=== PATIENT | female | born 1955 | race Caucasian/White ===

== ENCOUNTER 2016-06-21 00:02 | Emergency (ER) | payer BC ==
[2013-06-04 16:06] VITALS: BMI 25.8
[~2016-06-21 00:02] MED LIST: ALTACE5 MG PO; AMBIEN10 MG PO; KEPPRA XR750 MG PO; MEDROL DOSE PACK4 MG PO; NORCO 10/325 TA1 TA1 PO; SYNTHROID112 MCG PO; SYNTHROID50 MCG PO
[2016-06-21 01:27] LABS: BASOPHILS 0.5 % (0-2); EOSINOPHILS 0.4 % (0-7); HEMATOCRIT 40.8 % (36.0-48.0); HEMOGLOBIN 13.6 g/dL (12-16); IMMATURE GRANULOCYTES 0.2 % (0-5); LYMPHOCYTES 33.1 % (15-50); MCHC 33.3 g/dL (31.0-37.0); MEAN PLATELET VOLUME 10.2 fL (7.4-10.4); MONOCYTES 11.3 % (2-11); NEUTROPHILS 54.5 % (40-80); PLATELET COUNT 192 10x3/uL (130-400); RDW 14.5 % (11.5-14.5); WBC 5.5 10x3/uL (4.8-10.8)
[2016-06-21 01:41] LABS: ALBUMIN 3.2 g/dL (3.4-5.0); ALKALINE PHOSPHATASE 85 U/L (46-116); ALT (SGPT) 24 U/L (10-68); BILIRUBIN - TOTAL 0.74 mg/dL (0.2-1.3); CALC OSMOLALITY 284 mosm/kg (275-300); CALCIUM 8.4 mg/dL (8.5-10.1); CHLORIDE - SERUM 104 mmol/L (98-107); GLUCOSE 120 mg/dL (74-106); PROTEIN - SERUM 7.7 g/dL (6.4-8.2); SODIUM 143 mmol/L (136-145); UREA NITROGEN 9 mg/dL (7-18); eGFR NON AFRICAN AMERICAN 59 mL/min (90-120)
[2016-06-21 01:51] LABS: AMYLASE - SERUM 67 U/L (25-115); LIPASE 312 U/L (73-393); THYROID STIMULATING HORMONE 0.39 uIU/mL (0.36-3.74); TROPONIN-I < 0.017 ng/mL (0.000-0.060)
== END 2016-06-21 02:17 | disposition home or self-care (01) ==
LOC: D.ER 00:02
PROVIDERS: Family Medicine
DX: S00.83XA Contusion of other part of head, initial encounter (principal); W19.XXXA Unspecified fall, initial encounter; Y93.89 Activity, other specified; Y92.89 Other specified places as the place of occurrence of the external cause; F10.10 Alcohol abuse, uncomplicated

== ENCOUNTER → 2017-05-09 11:10 | Outpatient (CLI) | payer BC ==
[2013-06-04 16:06] VITALS: BMI 25.8
== END | disposition home or self-care (01) ==
LOC: D.MRI 11:10
DX: S32.000A Wedge compression fracture of unspecified lumbar vertebra, initial encounter for closed fracture (principal); X58.XXXA Exposure to other specified factors, initial encounter; Y93.89 Activity, other specified; Y92.89 Other specified places as the place of occurrence of the external cause

== ENCOUNTER → 2017-10-09 08:03 | Outpatient (CLI) | payer BC ==
[2013-06-04 16:06] VITALS: BMI 25.8
[~2017-10-09 08:03] MED LIST changes: +CHRONULAC30 ML PO; +SYNTHROID137 MCG PO
[2017-10-11 08:39] VITALS: BMI 26.7
== END | disposition home or self-care (01) ==
LOC: D.US 08:00
DX: R10.9 Unspecified abdominal pain (principal); R79.89 Other specified abnormal findings of blood chemistry

== ENCOUNTER 2017-10-10 16:05 | Inpatient (IN) | payer BC ==
[~2017-10-10] VITALS: Ht 167.6 cm; Wt 75.0 kg
[~2017-10-10 16:05] MED LIST changes: -CHRONULAC30 ML PO; -SYNTHROID137 MCG PO
[2017-10-10 17:36] LABS: BASOPHILS 0.6 % (0-2); EOSINOPHILS 0.4 % (0-7); HEMATOCRIT 32.2 % (36.0-48.0); HEMOGLOBIN 11.2 g/dL (12-16); IMMATURE GRANULOCYTES 0.3 % (0-5); LYMPHOCYTES 20.1 % (15-50); MCHC 34.8 g/dL (31.0-37.0); MONOCYTES 14.9 % (2-11); NEUTROPHILS 63.7 % (40-80); RDW 17.5 % (11.5-14.5)
[2017-10-10 17:42] LABS: PLATELET COUNT 132 10x3/uL (130-400)
[2017-10-10 17:50] LABS: ALBUMIN 1.5 g/dL (3.4-5.0); ANION GAP 9.3 mmol/L (8-16); BILIRUBIN - TOTAL 3.63 mg/dL (0.2-1.3); CALCIUM 7.6 mg/dL (8.5-10.1); CARBON DIOXIDE 27.1 mmol/L (21.0-32.0); CREATININE - SERUM 0.9 mg/dL (0.6-1.3); POTASSIUM - SERUM 3.4 mmol/L (3.5-5.1); PROTEIN - SERUM 7.3 g/dL (6.4-8.2)
[2017-10-10 18:11] VITALS: BP 96/52; BMI 26.7
[2017-10-10 18:51] LABS: BILIRUBIN - DIRECT 2.47 mg/dL (0.00-0.30)
[2017-10-10 20:00] VITALS: BP 84/63
[2017-10-10 20:29] LABS: BILIRUBIN - INDIRECT 1.16 mg/dL (0.00-1.00); BILIRUBIN - TOTAL 3.63 mg/dL (0.2-1.3)
[2017-10-11] VITALS: BP 80/43
[2017-10-11 04:00] VITALS: BP 86/45
[2017-10-11 06:27] LABS: ALBUMIN 1.3 g/dL (3.4-5.0); ALKALINE PHOSPHATASE 108 U/L (46-116); ALT (SGPT) 29 U/L (10-68); BILIRUBIN - TOTAL 3.75 mg/dL (0.2-1.3); CALC OSMOLALITY 273 mosm/kg (275-300); CALCIUM 7.1 mg/dL (8.5-10.1); CHLORIDE - SERUM 105 mmol/L (98-107); CREATININE - SERUM 0.8 mg/dL (0.6-1.3); GLUCOSE 72 mg/dL (74-106); PROTEIN - SERUM 6.4 g/dL (6.4-8.2); SODIUM 139 mmol/L (136-145); eGFR NON AFRICAN AMERICAN 77 mL/min (90-120)
[2017-10-11 06:28] LABS: UREA NITROGEN 4 mg/dL (7-18)
[2017-10-11 06:46] LABS: BASOPHILS 0.4 % (0-2); EOSINOPHILS 0.8 % (0-7); HEMATOCRIT 30.3 % (36.0-48.0); HEMOGLOBIN 10.4 g/dL (12-16); IMMATURE GRANULOCYTES 0.4 % (0-5); LYMPHOCYTES 29.6 % (15-50); MCH 39.4 pg (26.0-34.0); MCHC 34.3 g/dL (31.0-37.0); MCV 114.8 fL (80.0-100.0); MEAN PLATELET VOLUME 10.6 fL (7.4-10.4); MONOCYTES 14.7 % (2-11); NEUTROPHILS 54.1 % (40-80); PLATELET COUNT 131 10x3/uL (130-400); RBC 2.64 10x6/uL (4.00-5.40); RDW 17.5 % (11.5-14.5)
[2017-10-11 08:03] VITALS: BP 101/68
[2017-10-11 08:39] VITALS: Ht 167.6 cm; Wt 75.0 kg
[2017-10-11] MEDS ORDERED: SYNTHROID137 MCG PO (10:59)
[2017-10-11 16:15] VITALS: BP 103/72
[2017-10-11 21:10] VITALS: BP 100/69
[2017-10-12 05:07] VITALS: BP 124/74
[2017-10-12 05:22] LABS: BASOPHILS 0.3 % (0-2); EOSINOPHILS 0.8 % (0-7); HEMATOCRIT 31.4 % (36.0-48.0); HEMOGLOBIN 10.8 g/dL (12-16); IMMATURE GRANULOCYTES 0.2 % (0-5); LYMPHOCYTES 27.6 % (15-50); MCH 39.6 pg (26.0-34.0); MCHC 34.4 g/dL (31.0-37.0); MEAN PLATELET VOLUME 10.3 fL (7.4-10.4); MONOCYTES 12.2 % (2-11); NEUTROPHILS 58.9 % (40-80); PLATELET COUNT 119 10x3/uL (130-400); RBC 2.73 10x6/uL (4.00-5.40); RDW 17.1 % (11.5-14.5); WBC 6.1 10x3/uL (4.8-10.8)
[2017-10-12 05:43] LABS: ALBUMIN 1.2 g/dL (3.4-5.0); ANION GAP 8.8 mmol/L (8-16); BILIRUBIN - TOTAL 3.25 mg/dL (0.2-1.3); CALCIUM 7.3 mg/dL (8.5-10.1); CARBON DIOXIDE 24.8 mmol/L (21.0-32.0); CREATININE - SERUM 0.9 mg/dL (0.6-1.3); PROTEIN - SERUM 6.6 g/dL (6.4-8.2)
[2017-10-12 05:44] LABS: POTASSIUM - SERUM 3.6 mmol/L (3.5-5.1)
[2017-10-12 07:57] VITALS: BP 94/72
[2017-10-12 22:12] VITALS: BP 94/62
[2017-10-13 04:27] VITALS: BP 99/68
[2017-10-13 05:02] LABS: BASOPHILS 0.5 % (0-2); EOSINOPHILS 1.4 % (0-7); HEMOGLOBIN 11.1 g/dL (12-16); IMMATURE GRANULOCYTES 0.3 % (0-5); LYMPHOCYTES 28.4 % (15-50); MCH 39.5 pg (26.0-34.0); MCHC 34.7 g/dL (31.0-37.0); MCV 113.9 fL (80.0-100.0); MEAN PLATELET VOLUME 10.2 fL (7.4-10.4); NEUTROPHILS 58.4 % (40-80); PLATELET COUNT 123 10x3/uL (130-400); RBC 2.81 10x6/uL (4.00-5.40); RDW 16.6 % (11.5-14.5); WBC 5.9 10x3/uL (4.8-10.8)
[2017-10-13 05:18] LABS: ALBUMIN 1.3 g/dL (3.4-5.0); ALKALINE PHOSPHATASE 128 U/L (46-116); ALT (SGPT) 31 U/L (10-68); BILIRUBIN - TOTAL 3.08 mg/dL (0.2-1.3); CALC OSMOLALITY 271 mosm/kg (275-300); CALCIUM 7.3 mg/dL (8.5-10.1); CARBON DIOXIDE 25.8 mmol/L (21.0-32.0); CHLORIDE - SERUM 107 mmol/L (98-107); CREATININE - SERUM 0.8 mg/dL (0.6-1.3); GLUCOSE 77 mg/dL (74-106); POTASSIUM - SERUM 3.2 mmol/L (3.5-5.1); PROTEIN - SERUM 6.8 g/dL (6.4-8.2); SODIUM 138 mmol/L (136-145); UREA NITROGEN 3 mg/dL (7-18); eGFR NON AFRICAN AMERICAN 77 mL/min (90-120)
[2017-10-13 09:19] VITALS: BP 97/69
[2017-10-13 16:31] VITALS: BP 90/66
[2017-10-13 21:44] VITALS: BP 90/62
[2017-10-14 04:31] VITALS: BP 102/73
[2017-10-14 05:38] LABS: BASOPHILS 0.5 % (0-2); EOSINOPHILS 1.2 % (0-7); HEMATOCRIT 32.6 % (36.0-48.0); HEMOGLOBIN 11.1 g/dL (12-16); IMMATURE GRANULOCYTES 0.5 % (0-5); LYMPHOCYTES 24.4 % (15-50); MCH 38.8 pg (26.0-34.0); MEAN PLATELET VOLUME 9.9 fL (7.4-10.4); MONOCYTES 12.3 % (2-11); NEUTROPHILS 61.1 % (40-80); PLATELET COUNT 130 10x3/uL (130-400); RBC 2.86 10x6/uL (4.00-5.40); RDW 16.7 % (11.5-14.5); WBC 6.5 10x3/uL (4.8-10.8)
[2017-10-14 05:51] LABS: ALBUMIN 1.3 g/dL (3.4-5.0); ALKALINE PHOSPHATASE 124 U/L (46-116); ALT (SGPT) 29 U/L (10-68); CALC OSMOLALITY 269 mosm/kg (275-300); CALCIUM 7.3 mg/dL (8.5-10.1); CHLORIDE - SERUM 105 mmol/L (98-107); CREATININE - SERUM 0.8 mg/dL (0.6-1.3); GLUCOSE 77 mg/dL (74-106); PROTEIN - SERUM 6.5 g/dL (6.4-8.2); SODIUM 137 mmol/L (136-145); UREA NITROGEN 3 mg/dL (7-18); eGFR NON AFRICAN AMERICAN 77 mL/min (90-120)
[2017-10-14 05:53] LABS: POTASSIUM - SERUM 3.7 mmol/L (3.5-5.1)
[2017-10-14 08:14] VITALS: BP 104/77
[2017-10-14 12:02] VITALS: BP 104/73
[2017-10-14 17:01] VITALS: BP 92/72
[2017-10-14 22:14] VITALS: BP 94/68
[2017-10-15 05:40] VITALS: BP 112/68
[2017-10-15 06:01] LABS: BASOPHILS 0.5 % (0-2); EOSINOPHILS 1.7 % (0-7); HEMATOCRIT 31.9 % (36.0-48.0); IMMATURE GRANULOCYTES 0.3 % (0-5); LYMPHOCYTES 25.8 % (15-50); MCH 39.1 pg (26.0-34.0); MCHC 34.5 g/dL (31.0-37.0); MCV 113.5 fL (80.0-100.0); MEAN PLATELET VOLUME 10.2 fL (7.4-10.4); MONOCYTES 14.6 % (2-11); NEUTROPHILS 57.1 % (40-80); PLATELET COUNT 140 10x3/uL (130-400); RBC 2.81 10x6/uL (4.00-5.40); RDW 16.6 % (11.5-14.5); WBC 6.6 10x3/uL (4.8-10.8)
[2017-10-15 06:31] LABS: ALBUMIN 1.2 g/dL (3.4-5.0); ALKALINE PHOSPHATASE 130 U/L (46-116); ALT (SGPT) 29 U/L (10-68); BILIRUBIN - TOTAL 2.86 mg/dL (0.2-1.3); CALC OSMOLALITY 271 mosm/kg (275-300); CALCIUM 7.1 mg/dL (8.5-10.1); CARBON DIOXIDE 25.4 mmol/L (21.0-32.0); CHLORIDE - SERUM 106 mmol/L (98-107); CREATININE - SERUM 0.8 mg/dL (0.6-1.3); GLUCOSE 91 mg/dL (74-106); POTASSIUM - SERUM 3.8 mmol/L (3.5-5.1); PROTEIN - SERUM 6.4 g/dL (6.4-8.2); SODIUM 138 mmol/L (136-145); eGFR NON AFRICAN AMERICAN 77 mL/min (90-120)
[2017-10-15 06:32] LABS: UREA NITROGEN 2 mg/dL (7-18)
[2017-10-15 08:24] VITALS: BP 83/59
[2017-10-15 12:42] VITALS: BP 101/67
[2017-10-15] MEDS ORDERED: CHRONULAC30 ML PO (13:28)
[2017-10-16 09:17] LABS: ANA REFLEX - DIRECT Negative (Negative)
[2017-10-16 13:16] LABS: HEPATITIS C ANTIBODY 0.1 (0.0-0.9)
== END 2017-10-15 15:42 | disposition home or self-care (01) | DRG 433 ==
LOC: D.SDCHOLD 16:05 → D.MS 16:05
PROVIDERS: Family Medicine; Surgery
DX: K70.40 Alcoholic hepatic failure without coma (principal); K80.21 Calculus of gallbladder without cholecystitis with obstruction; K76.6 Portal hypertension; K70.30 Alcoholic cirrhosis of liver without ascites; M32.9 Systemic lupus erythematosus, unspecified; E03.9 Hypothyroidism, unspecified; Z87.891 Personal history of nicotine dependence

== ENCOUNTER 2017-12-09 16:10 | Inpatient (IN) | payer BC ==
[~2017-12-09] VITALS: Ht 167.6 cm; Wt 79.5 kg
--- NOTE | ~2017-12-09 | MORECARE ---
CASE MANAGEMENT DISCHARGE SUMMARY PATIENT: LILLY ABRAHAM UNIT: [id number] ADM DATE: 12/09/17 AGE: 62 : 53 SEX: F ROOM/BED: D.2238 AUTHOR: LORNA,DOC PHYSICIAN: REFERRING PHYSICIAN: MAYE RIZZO MD DATE OF SERVICE: 12/13/17 Discharge Plan Patient Name: LILLY ABRAHAM Facility: [facility]:[place] : 1955 Planned Disposition: Home with Home Health Anticipated Discharge Date: Discharge Date: 12/12/2017 Expected LOS: 0 Initial Reviewer: [email or web address] Initial Review Date: 12/10/2017 Generated: 12/13/17 6:08 pm Comments DCP- Discharge Planning Updated by [email or web address]: Dania Bedoya on 12/12/17 12:[address] is here in room getting patient dressed for discharge. Discharging home today with [facility]. I spoke with Josee and faxed DC summary and meds. denies further needs at this time. CM will continue to follow and assist with discharge planning/needs. DCP- Discharge Planning Updated by [email or web address]: Dania Bedoya on 12/10/17 9:[address] Patient Name: LILLY ABRAHAM Admission Status: Elective Accout number: [id number] Admission Date: 12-09-2017 : 1955 Admission Diagnosis: Attending: MAYE RIZZO Current LOS: 1 Anticipated DC Date: Planned Disposition: Home with Home Health Primary Insurance: [employer] [facility] EXCHANGE Discharge Planning Comments: CM met with patient, she is alone in the room. She answers some questions appropriately. States she would like me to speak with her . Patient's is in the hospital and has asked to speak to me. I spoke with patient's , Enrique. Discussed availability of SNF, rehab, home health and hospice. He states she lives with him and his 82 year old Aunt also lives in the house. He states he does not want her to go to a facility or inpatient rehab at this time and would prefer home health or personal care. BEATRICE for [employer] [facility] signed. I spoke with Josee and clinical sent. I provided him with personal care list, number for [facility]. CM will continue to follow and assist with discharge planning/needs. Enrique gonzalez - [phone] Engineering Team Supervisor: Dania Bedoya DCPIA - Discharge Planning Initial Assessment Updated by [email or web address]: Dania Bedoya on 12/10/17 10:32 am * Is the patient Alert and Oriented? No * How many steps to enter\exit or inside your home? 0/0 * PCP Dr. Rizzo * Pharmacy [facility] * Preadmission Environment Home with Family * ADLs Partial Dependent * Partial ADLs (Assistance needed) Ambulation Bathing Dressing Medication Management * Equipment Cane Crutch Walker Wheelchair * Other Equipment Fay Lift has been ordered * List name and contact numbers for known caregivers / representatives who currently or will assist patient after discharge: Enrique gonzalez - [phone] * Verbal permission to speak to the caregivers and representatives has been obtained from the patient. Yes * Community resources currently utilized None * Additional services required to return to the preadmission environment? Yes * Can the patient safely return to the preadmission environment? Yes * Has this patient been hospitalized within the prior 30 days at any hospital? No Last DP export: 12/12/17 12:40 p Patient Name: LILLY ABRAHAM Page [id number] at 1708 All edits/amendments must be made on the electronic document DICTATION DATE: 12/13/171706 PARTS COORDINATOR: ADDIE 12/13/171706 RPT#: [id number] DC DATE:12/12/17 STATUS: DIS IN [facility] [address] [place] [address] END OF REPORT
--- NOTE | ~2017-12-09 | MORECARE ---
CASE MANAGEMENT DISCHARGE SUMMARY PATIENT: LILLY ABRAHAM UNIT: [id number] ADM DATE: 12/09/17 AGE: 62 : 53 SEX: F ROOM/BED: D.2238 AUTHOR: LORNA,DOC PHYSICIAN: REFERRING PHYSICIAN: MAYE RIZZO MD DATE OF SERVICE: 12/10/17 Discharge Plan Patient Name: LILLY ABRAHAM Facility: [facility]:[place] : 1955 Planned Disposition: Home with Home Health Anticipated Discharge Date: Discharge Date: Expected LOS: Initial Reviewer: [email or web address] Initial Review Date: 12/10/2017 Generated: 12/10/17 11:43 am Comments DCP- Discharge Planning Updated by [email or web address]: Dania Bedoya on 12/10/17 9:[address] Patient Name: LILLY ABRAHAM Admission Status: Elective Accout number: [id number] Admission Date: 12-09-2017 : 1955 Admission Diagnosis: Attending: MAYE RIZZO Current LOS: 1 Anticipated DC Date: Planned Disposition: Home with Home Health Primary Insurance: [employer] EXCHANGE Discharge Planning Comments: CM met with patient, she is alone in the room. She answers some questions appropriately. States she would like me to speak with her . Patient's is in the hospital and has asked to speak to me. I spoke with patient's , Enrique. Discussed availability of SNF, rehab, home health and hospice. He states she lives with him and his 82 year old Aunt also lives in the house. He states he does not want her to go to a facility or inpatient rehab at this time and would prefer home health or personal care. BEATRICE for [employer] signed. I spoke with Josee and carlita stoddard. I provided him with personal care list, number for [facility]. CM will continue to follow and assist with discharge planning/needs. Enrique - - [phone] Drill Operator Automatic: Dania Bedoya DCPIA - Discharge Planning Initial Assessment Updated by [email or web address]: Dania Bedoya on 12/10/17 10:32 am * Is the patient Alert and Oriented? No * How many steps to enter\exit or inside your home? 0/0 * PCP Dr. Rizzo * Pharmacy [facility] * Preadmission Environment Home with Family * ADLs Partial Dependent * Partial ADLs (Assistance needed) Ambulation Bathing Dressing Medication Management * Equipment Cane Crutch Walker Wheelchair * Other Equipment Fay Lift has been ordered * List name and contact numbers for known caregivers / representatives who currently or will assist patient after discharge: Enrique gonzalez - [phone] * Verbal permission to speak to the caregivers and representatives has been obtained from the patient. Yes * Community resources currently utilized None * Additional services required to return to the preadmission environment? Yes * Can the patient safely return to the preadmission environment? Yes * Has this patient been hospitalized within the prior 30 days at any hospital? No Last DP export: 12/10/17 9:36 Patient Name: LILLY ABRAHAM Page 03242 at 1043 All edits/amendments must be made on the electronic document DICTATION DATE: 12/10/17 104 RESEARCH SCIENTIST: ADDIE 12/10/17 1042 RPT#: [id number] DC DATE: STATUS: ADM IN [facility] [address] [place] [address] END OF REPORT
--- NOTE | ~2017-12-09 | MORECARE ---
CASE MANAGEMENT DISCHARGE SUMMARY PATIENT: LILLY ABRAHAM UNIT: [id number] ADM DATE: 12/09/17 AGE: 62 : 53 SEX: F ROOM/BED: D.2238 AUTHOR: LUIS ALBERTO ROTHMAN PHYSICIAN: REFERRING PHYSICIAN: MAYE RIZZO MD DATE OF SERVICE: 12/10/17 Discharge Plan Patient Name: LILLY ABRAHAM Facility: [facility]:[place] : 1955 Planned Disposition: Home with Home Health Anticipated Discharge Date: Discharge Date: Expected LOS: Initial Reviewer: [email or web address] Initial Review Date: 12/10/2017 Generated: 12/10/17 11:36 am DCPIA - Discharge Planning Initial Assessment Updated by [email or web address]: Dania Bedoya on 12/10/17 10:32 am * Is the patient Alert and Oriented? No * How many steps to enter\exit or inside your home? 0/0 * PCP Dr. Rizzo * Pharmacy [facility] * Preadmission Environment Home with Family * ADLs Partial Dependent * Partial ADLs (Assistance needed) Ambulation Bathing Dressing Medication Management * Equipment Cane Crutch Walker Wheelchair * Other Equipment Fay Lift has been ordered * List name and contact numbers for known caregivers / representatives who currently or will assist patient after discharge: Enrique gonzalez - [phone] * Verbal permission to speak to the caregivers and representatives has been obtained from the patient. Yes * Community resources currently utilized None * Additional services required to return to the preadmission environment? Yes * Can the patient safely return to the preadmission environment? Yes * Has this patient been hospitalized within the prior 30 days at any hospital? No Patient Name: LILLY ABRAHAM Page 62711 at 1036 All edits/amendments must be made on the electronic document DICTATION DATE: 12/10/17 1035 MANAGER LAND: ADDIE 12/10/17 1035 RPT#: [id number] DC DATE: STATUS: ADM IN [facility] [address] [place] [address] END OF REPORT
--- NOTE | ~2017-12-09 | MORECARE ---
CASE MANAGEMENT DISCHARGE SUMMARY PATIENT: LILLY ABRAHAM UNIT: [id number] ADM DATE: 12/09/17 AGE: 62 : 53 SEX: F ROOM/BED: D.2238 AUTHOR: LORNA,DOC PHYSICIAN: REFERRING PHYSICIAN: MAYE RIZZO MD DATE OF SERVICE: 12/10/17 Discharge Plan Patient Name: LILLY ABRAHAM Facility: [facility]:[place] : 1955 Planned Disposition: Home with Home Health Anticipated Discharge Date: Discharge Date: Expected LOS: Initial Reviewer: [email or web address] Initial Review Date: 12/10/2017 Generated: 12/10/17 11:59 am Comments DCP- Discharge Planning Updated by [email or web address]: Dania Bedoya on 12/10/17 9:[address] Patient Name: LILLY ABRAHAM Admission Status: Elective Accout number: [id number] Admission Date: 12-09-2017 : 1955 Admission Diagnosis: Attending: MAYE RIZZO Current LOS: 1 Anticipated DC Date: Planned Disposition: Home with Home Health Primary Insurance: [employer] EXCHANGE Discharge Planning Comments: CM met with patient, she is alone in the room. She answers some questions appropriately. States she would like me to speak with her . Patient's is in the hospital and has asked to speak to me. I spoke with patient's , Enrique. Discussed availability of SNF, rehab, home health and hospice. He states she lives with him and his 82 year old Aunt also lives in the house. He states he does not want her to go to a facility or inpatient rehab at this time and would prefer home health or personal care. BEATRICE for [employer] signed. I spoke with Josee and carlita stoddard. I provided him with personal care list, number for [facility]. CM will continue to follow and assist with discharge planning/needs. Enrique - - [phone] Junior Designer: Dania Bedoya DCPIA - Discharge Planning Initial Assessment Updated by [email or web address]: Dania Bedoya on 12/10/17 10:32 am * Is the patient Alert and Oriented? No * How many steps to enter\exit or inside your home? 0/0 * PCP Dr. Rizzo * Pharmacy [facility] * Preadmission Environment Home with Family * ADLs Partial Dependent * Partial ADLs (Assistance needed) Ambulation Bathing Dressing Medication Management * Equipment Cane Crutch Walker Wheelchair * Other Equipment Fay Lift has been ordered * List name and contact numbers for known caregivers / representatives who currently or will assist patient after discharge: Enrique gonzalez - [phone] * Verbal permission to speak to the caregivers and representatives has been obtained from the patient. Yes * Community resources currently utilized None * Additional services required to return to the preadmission environment? Yes * Can the patient safely return to the preadmission environment? Yes * Has this patient been hospitalized within the prior 30 days at any hospital? No External Providers External Provider: [facility] Next Contact Date: Service Request Date: Service Type: Resolution: Reviewer: Comments: Last DP export: 12/10/17 9:43 Patient Name: LILLY ABRAHAM Page [id number] at 1059 All edits/amendments must be made on the electronic document DICTATION DATE: 12/10/171057 INSTITUTIONAL AIDE: ADDIE 12/10/17 105 RPT#: [id number] DC DATE: STATUS: ADM IN [facility] [address] [place] [address] END OF REPORT
--- NOTE | ~2017-12-09 | MORECARE ---
CASE MANAGEMENT DISCHARGE SUMMARY PATIENT: LILLY ABRAHAM UNIT: [id number] ADM DATE: 12/09/17 AGE: 62 : 51 SEX: F ROOM/BED: D.2238 AUTHOR: LORNA,DOC PHYSICIAN: REFERRING PHYSICIAN: MAYE RIZZO MD DATE OF SERVICE: 12/12/17 Discharge Plan Patient Name: LILLY ABRAHAM Facility: [facility]:[place] : 1955 Planned Disposition: Home with Home Health Anticipated Discharge Date: Discharge Date: Expected LOS: Initial Reviewer: [email or web address] Initial Review Date: 12/10/2017 Generated: 12/12/17 2:40 pm Comments DCP- Discharge Planning Updated by [email or web address]: Dania Bedoya on 12/12/17 12:[address] is here in room getting patient dressed for discharge. Discharging home today with [facility] health services. I spoke with Josee and faxed DC summary and meds. denies further needs at this time. CM will continue to follow and assist with discharge planning/needs. DCP- Discharge Planning Updated by [email or web address]: Dania Bedoya on 12/10/17 9:[address] Patient Name: LILLY ABRAHAM Admission Status: Elective Accout number: [id number] Admission Date: 12-09-2017 : 1955 Admission Diagnosis: Attending: MAYE RIZZO Current LOS: 1 Anticipated DC Date: Planned Disposition: Home with Home Health Primary Insurance: [employer] [facility] EXCHANGE Discharge Planning Comments: CM met with patient, she is alone in the room. She answers some questions appropriately. States she would like me to speak with her . Patient's is in the hospital and has asked to speak to me. I spoke with patient's , Enrique. Discussed availability of SNF, rehab, home health and hospice. He states she lives with him and his 82 year old Aunt also lives in the house. He states he does not want her to go to a facility or inpatient rehab at this time and would prefer home health or personal care. BEATRICE for [facility] signed. I spoke with Josee and clinical sent. I provided him with personal care list, number for [facility]. CM will continue to follow and assist with discharge planning/needs. Enrique gonzalez - [phone] Mold Capper: Dania Bedoya DCPIA - Discharge Planning Initial Assessment Updated by [email or web address]: Dania Bedoya on 12/10/17 10:32 am * Is the patient Alert and Oriented? No * How many steps to enter\exit or inside your home? 0/0 * PCP Dr. Rizzo * Pharmacy [facility] * Preadmission Environment Home with Family * ADLs Partial Dependent * Partial ADLs (Assistance needed) Ambulation Bathing Dressing Medication Management * Equipment Cane Crutch Walker Wheelchair * Other Equipment Fay Lift has been ordered * List name and contact numbers for known caregivers / representatives who currently or will assist patient after discharge: Enrique gonzalez - [phone] * Verbal permission to speak to the caregivers and representatives has been obtained from the patient. Yes * Community resources currently utilized None * Additional services required to return to the preadmission environment? Yes * Can the patient safely return to the preadmission environment? Yes * Has this patient been hospitalized within the prior 30 days at any hospital? No Last DP export: 12/10/17 9:59 Patient Name: LILLY ABRAHAM Page [id number] at 1340 All edits/amendments must be made on the electronic document DICTATION DATE: 12/12/17 1340 LOAD HAUL DUMP OPERATOR: ADDIE 12/12/17 1340 RPT#: [id number] MA DATE: STATUS: ADM IN [facility] [address] [place] [address] END OF REPORT
[~2017-12-09 16:10] MED LIST changes: +CHRONULAC30 ML PO; +SYNTHROID137 MCG PO
[2017-12-09 17:23] LABS: BASOPHILS 0.4 % (0-2); EOSINOPHILS 0.2 % (0-7); HEMATOCRIT 32.9 % (36.0-48.0); HEMOGLOBIN 10.9 g/dL (12-16); IMMATURE GRANULOCYTES 0.4 % (0-5); LYMPHOCYTES 16.4 % (15-50); MCH 36.8 pg (26.0-34.0); MCHC 33.1 g/dL (31.0-37.0); MCV 111.1 fL (80.0-100.0); MEAN PLATELET VOLUME 9.5 fL (7.4-10.4); MONOCYTES 11.4 % (2-11); NEUTROPHILS 71.2 % (40-80); RBC 2.96 10x6/uL (4.00-5.40); RDW 19.3 % (11.5-14.5); WBC 8.1 10x3/uL (4.8-10.8)
[2017-12-09 17:25] LABS: PLATELET COUNT 100 10x3/uL (130-400)
[2017-12-09 17:36] LABS: ALBUMIN 1.3 g/dL (3.4-5.0); ANION GAP 12.6 mmol/L (8-16); BILIRUBIN - TOTAL 8.5 mg/dL (0.2-1.3); CALCIUM 7.8 mg/dL (8.5-10.1); CARBON DIOXIDE 25.6 mmol/L (21.0-32.0); CREATININE - SERUM 1.1 mg/dL (0.6-1.3); POTASSIUM - SERUM 3.2 mmol/L (3.5-5.1); PROTEIN - SERUM 7.1 g/dL (6.4-8.2)
[2017-12-09 19:30] VITALS: BP 148/78; Ht 167.6 cm; Wt 79.5 kg
[2017-12-09 20:00] VITALS: BP 121/79
[2017-12-10 04:00] VITALS: BP 100/69
[2017-12-10 05:15] VITALS: BP 104/66
[2017-12-10 06:29] LABS: BASOPHILS 0.4 % (0-2); EOSINOPHILS 0.9 % (0-7); HEMATOCRIT 32.6 % (36.0-48.0); HEMOGLOBIN 10.6 g/dL (12-16); IMMATURE GRANULOCYTES 0.2 % (0-5); LYMPHOCYTES 26.7 % (15-50); MCH 36.2 pg (26.0-34.0); MCHC 32.5 g/dL (31.0-37.0); MCV 111.3 fL (80.0-100.0); MEAN PLATELET VOLUME 10.1 fL (7.4-10.4); MONOCYTES 11.7 % (2-11); NEUTROPHILS 60.1 % (40-80); PLATELET COUNT 104 10x3/uL (130-400); RBC 2.93 10x6/uL (4.00-5.40); RDW 19.6 % (11.5-14.5)
[2017-12-10 07:09] LABS: ALBUMIN 1.3 g/dL (3.4-5.0); ANION GAP 11.5 mmol/L (8-16); BILIRUBIN - TOTAL 8.83 mg/dL (0.2-1.3); CALCIUM 7.8 mg/dL (8.5-10.1); CARBON DIOXIDE 26.5 mmol/L (21.0-32.0); CREATININE - SERUM 0.9 mg/dL (0.6-1.3); PROTEIN - SERUM 7.1 g/dL (6.4-8.2)
[2017-12-10 08:45] VITALS: BP 109/72
[2017-12-10 12:45] VITALS: BP 99/70
[2017-12-10 17:50] VITALS: BP 129/60
[2017-12-10 20:00] VITALS: BP 104/75
[2017-12-11 04:34] LABS: BASOPHILS 0.5 % (0-2); HEMATOCRIT 31.3 % (36.0-48.0); HEMOGLOBIN 10.4 g/dL (12-16); IMMATURE GRANULOCYTES 0.4 % (0-5); LYMPHOCYTES 23.8 % (15-50); MCH 37.1 pg (26.0-34.0); MCHC 33.2 g/dL (31.0-37.0); MCV 111.8 fL (80.0-100.0); MEAN PLATELET VOLUME 9.8 fL (7.4-10.4); MONOCYTES 14.9 % (2-11); NEUTROPHILS 59.4 % (40-80); PLATELET COUNT 103 10x3/uL (130-400); RDW 19.3 % (11.5-14.5); WBC 8.4 10x3/uL (4.8-10.8)
[2017-12-11 05:04] LABS: ALBUMIN 1.1 g/dL (3.4-5.0); ANION GAP 11.9 mmol/L (8-16); BILIRUBIN - TOTAL 6.77 mg/dL (0.2-1.3); CALCIUM 7.3 mg/dL (8.5-10.1); CARBON DIOXIDE 25.7 mmol/L (21.0-32.0); POTASSIUM - SERUM 3.6 mmol/L (3.5-5.1); PROTEIN - SERUM 6.4 g/dL (6.4-8.2)
[2017-12-11 06:00] VITALS: BP 106/70
[2017-12-11 09:28] VITALS: BP 107/93
[2017-12-11 12:49] VITALS: BP 111/78
[2017-12-11 16:46] VITALS: BP 117/80
[2017-12-11 20:00] VITALS: BP 103/71
[2017-12-12 04:24] VITALS: BP 109/62
[2017-12-12 06:49] LABS: ALBUMIN 1.2 g/dL (3.4-5.0); ALKALINE PHOSPHATASE 88 U/L (46-116); ALT (SGPT) 36 U/L (10-68); BILIRUBIN - TOTAL 7.46 mg/dL (0.2-1.3); CALC OSMOLALITY 267 mosm/kg (275-300); CALCIUM 7.5 mg/dL (8.5-10.1); CARBON DIOXIDE 23.4 mmol/L (21.0-32.0); CHLORIDE - SERUM 102 mmol/L (98-107); CREATININE - SERUM 0.8 mg/dL (0.6-1.3); GLUCOSE 76 mg/dL (74-106); PROTEIN - SERUM 6.7 g/dL (6.4-8.2); SODIUM 136 mmol/L (136-145); UREA NITROGEN 3 mg/dL (7-18); eGFR NON AFRICAN AMERICAN 76 mL/min (90-120)
[2017-12-12 07:08] LABS: BASOPHILS 0.6 % (0-2); EOSINOPHILS 0.7 % (0-7); HEMATOCRIT 28.1 % (36.0-48.0); HEMOGLOBIN 9.5 g/dL (12-16); IMMATURE GRANULOCYTES 0.6 % (0-5); MCH 38.6 pg (26.0-34.0); MCHC 33.8 g/dL (31.0-37.0); MONOCYTES 13.1 % (2-11); RBC 2.46 10x6/uL (4.00-5.40); RDW 20.9 % (11.5-14.5); WBC 6.9 10x3/uL (4.8-10.8)
[2017-12-12 07:09] LABS: MCV 114.2 fL (80.0-100.0); PLATELET COUNT 133 10x3/uL (130-400)
[2017-12-12 07:12] LABS: POTASSIUM - SERUM 4.5 mmol/L (3.5-5.1)
[2017-12-12 09:32] VITALS: BP 107/76
[2017-12-12] MEDS ORDERED: ALDACTONE25 MG PO (12:27)
[2017-12-12] MEDS ORDERED: XIFAXAN550 MG PO (12:27)
[2017-12-12] MEDS ORDERED: CHRONULAC30 ML PO (12:28)
[2017-12-12] MEDS ORDERED: LASIX20 MG PO (12:28)
[2017-12-12] MEDS ORDERED: K-DUR20 MEQ PO (12:29)
[2017-12-12] MEDS ORDERED: WELLBUTRIN SR150 MG PO (12:30)
== END 2017-12-12 14:56 | disposition home health service (06) | DRG 433 ==
LOC: D.MS 16:10
PROVIDERS: Family Medicine
DX: K70.40 Alcoholic hepatic failure without coma (principal); K76.6 Portal hypertension; F10.20 Alcohol dependence, uncomplicated; K70.30 Alcoholic cirrhosis of liver without ascites

== ENCOUNTER 2018-01-07 20:08 | Emergency (ER) | payer BC ==
[~2018-01-07] VITALS: Ht 167.6 cm; Wt 76.4 kg
[~2018-01-07 20:08] MED LIST changes: +ALDACTONE25 MG PO; +K-DUR20 MEQ PO; +LASIX20 MG PO; +WELLBUTRIN SR150 MG PO; +XIFAXAN550 MG PO
[2018-01-07 20:31] VITALS: Ht 167.6 cm; Wt 76.4 kg
[2018-01-07] MEDS ORDERED: AMBIEN10 MG PO (20:35)
[2018-01-07] MEDS ORDERED: ASCORBIC ACID500 MG PO (20:35)
[2018-01-07] MEDS ORDERED: CIPRO500 MG PO (20:36)
[2018-01-07] MEDS ORDERED: PROZAC10 MG PO (20:37)
[2018-01-07] MEDS ORDERED: ZOFRAN4 MG PO (20:38)
[2018-01-07] MEDS ORDERED: SUPER B COMPLE150 MG PO (20:38)
[2018-01-07 22:00] LABS: BASOPHILS 0.2 % (0-2); EOSINOPHILS 0.1 % (0-7); HEMATOCRIT 28.6 % (36.0-48.0); HEMOGLOBIN 9.5 g/dL (12-16); IMMATURE GRANULOCYTES 0.6 % (0-5); MCH 39.1 pg (26.0-34.0); MCHC 33.2 g/dL (31.0-37.0); MCV 117.7 fL (80.0-100.0); MEAN PLATELET VOLUME 9.5 fL (7.4-10.4); MONOCYTES 12.7 % (2-11); NEUTROPHILS 77.4 % (40-80); PLATELET COUNT 114 10x3/uL (130-400); RBC 2.43 10x6/uL (4.00-5.40); RDW 16.9 % (11.5-14.5); WBC 10.8 10x3/uL (4.8-10.8)
[2018-01-07 22:12] LABS: APTT 56.6 SECONDS (22.8-39.4); INR 3.39 (0.85-1.17); PROTIME 33.5 SECONDS (11.6-15.0)
[2018-01-07 22:22] LABS: ALBUMIN 1.5 g/dL (3.4-5.0); BILIRUBIN - TOTAL 8.13 mg/dL (0.2-1.3); CALCIUM 7.6 mg/dL (8.5-10.1); CARBON DIOXIDE 19.3 mmol/L (21.0-32.0); POTASSIUM - SERUM 3.3 mmol/L (3.5-5.1); PROTEIN - SERUM 6.6 g/dL (6.4-8.2)
[2018-01-07 22:50] VITALS: BP 111/66
== END 2018-01-07 22:50 | disposition other institution (70) ==
LOC: D.ER 20:08
PROVIDERS: Family Medicine
DX: S02.19XA Other fracture of base of skull, initial encounter for closed fracture (principal); W18.30XA Fall on same level, unspecified, initial encounter; Y93.89 Activity, other specified; Y92.89 Other specified places as the place of occurrence of the external cause; S00.93XA Contusion of unspecified part of head, initial encounter; S06.5X9A Traumatic subdural hemorrhage with loss of consciousness of unspecified duration, initial encounter; M54.2 Cervicalgia